=== PATIENT | female | born 1965 | race Caucasian/White ===

== ENCOUNTER 2017-12-16 16:04 | Emergency (ER) | payer OTHER ==
[~2017-12-16] VITALS: Ht 160 cm; Wt 63.5 kg
[2017-12-16] MEDS ORDERED: WELLBUTRIN XL300 MG PO (16:13)
[2017-12-16] MEDS ORDERED: EFFEXOR 5050 MG/1 T1 PO (16:13)
[2017-12-16 16:47] LABS: ABSOLUTE EOSINOPHILS 0.2 thou/uL (0.0-0.7); ABSOLUTE LYMPHOCYTES 1.9 thou/uL (0.8-5.3); ABSOLUTE MONOCYTES 0.4 thou/uL (0.0-1.2); ABSOLUTE NEUTROPHILS 3.9 thou/uL (1.6-8.1); BASOPHILS 0.6 %; EOSINOPHILS 2.8 %; HEMATOCRIT 41.7 % (37.0-47.0); HEMOGLOBIN 14.2 gm/dL (12.0-15.0); LYMPHOCYTES 29.1 %; MCV 94.1 fL (80.0-100.0); MONOCYTES 6.9 %; MPV 8.7 fl. (7.2-11.1); NUCLEATED RBCS 0 /100WBC; PLATELET COUNT* 219 thou/uL (150-400); POLYS 60.6 %; RBC 4.43 mil/uL (4.20-5.00); WBC 6.4 thou/uL (4.0-11.0)
[2017-12-16 16:54] LABS: CALCIUM 8.5 mg/dL (8.5-10.1); CREATININE 0.8 mg/dL (0.6-1.3); POTASSIUM 3.3 mmol/L (3.5-5.1)
[2017-12-16 17:05] LABS: ALBUMIN 3.4 g/dL (3.4-5.0); TOTAL BILIRUBIN 0.2 mg/dL (<0.1-1.0); TOTAL PROTEIN 6.5 g/dL (6.4-8.2)
[2017-12-16] MEDS ORDERED: LISINOPRIL10 MG PO (17:25)
[2017-12-16] MEDS ORDERED: POTASSIUM20 PO (17:32)
[2017-12-16 17:46] VITALS: BP 140/78
--- NOTE | 2017-12-17 13:35 | EKG ---
[place] [address] ELECTROCARDIOGRAM REPORT Name: IAN COUGHLIN Room: [facility]#: [id number] Admission: 12/16/17 Attend Phys: Discharge: 12/16/17 Date of : 69 Report #: [id number] THIS REPORT FOR: //name// [facility] ED Test Date: 2017-12-16 Test Time: 16:12:27 Pat Name: IAN COUGHLIN Department: Room: Gender: F Restaurant Area Director: David CORDON : 1965 Requested By: Alfonzo Jordan Order Number: [id number] MD: Cem Johnston Measurements Intervals [place] Rate: 90 P: 36 WY: 116 QRS: 61 QRSD: 79 T: 58 QT: 310 QTc: 380 Interpretive Statements Sinus rhythm Borderline short [place] interval Nonspecific repol abnormality, diffuse leads Baseline wander in lead(s) V2 No previous ECG available for comparison Electronically Signed On 12-17-2017 13:35:27 CDT by Cem Johnston [email or web address] <ELECTRONICALLY SIGNED> By: Cem Johnston MD, [facility] 12/17/17 1335 161 161 Cem Johnston MD, FAC /EPI
== END 2017-12-16 17:47 | disposition home or self-care (01) ==
LOC: M.ERS 16:04
PROVIDERS: Nurse Practitioner Psychiatric/Mental Health
DX: R03.0 Elevated blood-pressure reading, without diagnosis of hypertension (principal); E87.6 Hypokalemia; F41.9 Anxiety disorder, unspecified; F17.200 Nicotine dependence, unspecified, uncomplicated; Z88.2 Allergy status to sulfonamides